=== PATIENT | male | born 1985 ===

== ENCOUNTER → 2016-11-03 | Outpatient (REF) | payer SELFPAY ==
[2016-11-03 14:25] LABS: % NORMAL FORMS 14 % (>=4); IMMOTILITY 49 %; NON PROGRESSIVE MOTILITY (c) 8 %; PROGRESSIVE MOTILITY (a) 43 % (>=32); TOTAL MOTILITY 51 % (>=40)
[2016-11-03 14:26] LABS: SPERM# 298.1 M/Ejac (33-46); TOTAL FUNCTIONAL 38.7 M/Ejac.; TOTAL PROGRESSIVE SPERM 126.7 M/Ejac.
== END ==
LOC: M LAB REF 14:17
PROVIDERS: ATTEND Student in an Organized Health Care Education/Training Program
DX: N46.9 Male infertility, unspecified (principal)

== ENCOUNTER → 2016-11-30 | Outpatient (REF) | payer OTHER ==
[2016-11-30 12:41] LABS: % NORMAL FORMS 16 % (>=4); IMMOTILITY 48 %; NON PROGRESSIVE MOTILITY (c) 6 %; PROGRESSIVE MOTILITY (a) 46 % (>=32); SPERM# 232.2 M/Ejac (33-46); TOTAL MOTILITY 52 % (>=40)
== END ==
LOC: M LAB REF 11:40
PROVIDERS: ATTEND Student in an Organized Health Care Education/Training Program
DX: N46.9 Male infertility, unspecified (principal)

== ENCOUNTER → 2018-07-14 | Outpatient (REF) | payer OTHER | LOC: M LAB REF 09:28 | DX: J02.0 Streptococcal pharyngitis (principal) ==